=== PATIENT | male | born 1980 | race Caucasian/White ===

== ENCOUNTER 2017-09-06 09:18 | Emergency (ER) | payer SELFPAY ==
[2017-09-06] MEDS ORDERED: Metoclopramide 10 MG/2 ML SDV IVPUSH ONE (10:29)
[2017-09-06] MEDS ORDERED: LORazepam 2 MG/ML MDV IVPUSH ONE (10:29)
--- NOTE | 2017-09-06 10:29 | EDM.PDOCBH ---
ED HPI GENERAL MEDICAL PROBLEM - General Chief Complaint: Drug or Alcohol Abuse Stated Complaint: ALCOHOL DETOX Time Seen by Provider: 09/06/17 10:23 Source of Information: Reports: Patient History Limitations: Reports: No Limitations - History of Present Illness INITIAL COMMENTS - FREE TEXT/NARRATIVE: 37-year-old male presents to the ED with a request to help stop drinking alcohol. He's enjoyed 2 years of sobriety but fell off the wagon about 3 weeks ago and is been drinking large quantities of vodka anywhere between 3 and 4 pints per day. Last drink was last evening about 8:00. At present he is feeling very agitated and anxious. No nausea or vomiting. No he met emesis. Stools tend to be on the loose side. Other use of street drugs. Smokes 5 cigarettes per day. Plan is to get back into treatment program in [place] where he went to years ago with good success. He has generalized chronic anxiety disorder. States this is why he drinks alcohol. Has a lot of guilt about drinking alcohol but denies any suicidal ideation or attempts in the past. Onset: Today (Withdrawal symptoms started overnight. Hardly slept at all.) Onset Date: 09/05/17 Duration: Hour(s): Location: Reports: Generalized (Generalized anxiety feeling very antsy and no) Quality: Reports: Other Severity: Severe (Anxiety) Improves with: Reports: None Worsens with: Reports: None Context: Reports: Other (Alcoholism.). Denies: Activity, Exercise, Sick Contact , Trauma Associated Symptoms: Reports: Malaise, Nausea/Vomiting (Nausea with no vomiting) . Denies: Confusion, Chest Pain, Cough, cough w sputum, Diaphoresis, Fever/ Chills, Headaches, Loss of Appetite, Rash, Seizure, Shortness of Breath, Syncope Treatments [employer] FOR[employer] ANALYST: Reports: Other (see below) (None.) - Related Data Allergies Allergy/AdvReac Type Severity Reaction Status Date / Time No Known Allergies Allergy Verified 09/06/17 09:28 Home Meds: Home Meds LORazepam [Ativan] 1 mg PO ASDIRECTED #24 tablet 09/06/17 [Rx] buPROPion [Wellbutrin XL] 150 mg PO DAILY 09/06/17 [History] Past Medical History Psychiatric History: Reports: Addiction, Anxiety Social & Family History - Tobacco Use Smoking Status *Q: Current Every Day Smoker Tobacco Use Within Last Twelve Months: Cigarettes (About 5 cigarettes a day.) Years of Tobacco use: 2 Packs/Tins Daily: 0.5 - Alcohol Use Days Per Week of Alcohol Use: 7 Number of Drinks Per Day: 10 (Drinks on average of 3-4 pints of vodka per day.) Total Drinks Per Week: 70 - Recreational Drug Use Recreational Drug Use: No - Living Situation & Occupation Occupation: Employed ED ROS GENERAL - Review of Systems Review Of Systems: See Below Constitutional: Reports: Malaise, Weight Loss. Denies: Fever, Chills, Weakness , Fatigue HEENT: Reports: No Symptoms Respiratory: Reports: No Symptoms Cardiovascular: Reports: No Symptoms Endocrine: Reports: Fatigue GI/Abdominal: Reports: Nausea (Slight nausea at times. Has not eaten yet today.) . Denies: Abdominal Pain : Reports: Frequency Musculoskeletal: Reports: No Symptoms Skin: Reports: No Symptoms Neurological: Reports: No Symptoms Psychiatric: Reports: Agitation, Anxiety. Denies: Confusion, Cravings, Depression, Hallucinations, Homicidal Ideation, Mood Lability, Suicidal Ideation Hematologic/Lymphatic: Reports: No Symptoms Immunologic: Reports: No Symptoms ED EXAM, BEHAVIORAL HEALTH - Physical Exam Exam: See Below Exam Limited By: No Limitations General Appearance: Alert, WD/WN, Moderate Distress (Appears very anxious and has difficulty sitting or standing in one place for too long.) Eye Exam: Bilateral Eye: Normal Inspection, Nystagmus (Mild I statements on left lateral gaze bilaterally.) Throat/Mouth: Normal Inspection, Normal Lips, Normal Oropharynx, Other (Tongue is mildly dry and coated.) Head: Atraumatic, Normocephalic Neck: Normal Inspection, Supple, Non-Tender, Full Range of Motion. No: Lymphadenopathy (L), Lymphadenopathy (R) Respiratory/Chest: No Respiratory Distress, Lungs Clear, Normal Breath Sounds, No Accessory Muscle Use Cardiovascular: Normal Peripheral Pulses, No Edema (Mildly tachycardic 1 14/m at rest.), No Gallop, No Murmur, No Rub, Tachycardia GI/Abdominal: Normal Bowel Sounds, Soft, Non-Tender, No Organomegaly, No Distention, No Abnormal Bruit, No Mass, Pelvis Stable Back Exam: Normal Inspection, Full Range of Motion. No: CVA Tenderness (L), CVA Tenderness (R) Extremities: Normal Inspection, Normal Range of Motion, Non-Tender, No Pedal Edema, Normal Capillary Refill Neurological: Alert, Normal Mood/Affect, CN II-XII Intact, Normal Cognition, Normal Reflexes, Oriented x 3 Psychiatric: Alert, Normal Affect, Normal Cognition, Normal Mood, Oriented, Restless. No: Poor Eye Contact, Uncooperative, Homicidal Thoughts, Moravian Delusions, Suicidal Plan, Suicidal Thoughts, Tangential Thoughts, Auditory Hallucinations, Visual Hallucinations Skin Exam: Warm, Dry, Intact, Normal color, No rash COURSE, BEHAVIORAL HEALTH COMP - Course Vital Signs: Last Vital Signs Temp 35.7 C 09/06/17 09:24 Pulse 113 H 09/06/17 09:24 Resp 16 09/06/17 09:24 BP 163/102 H 09/06/17 09:24 Pulse Ox 97 09/06/17 09:24 Orders, Labs, Meds: Laboratory Tests 09/06/17 09/06/17 09/06/17 Range/Units 10:35 10:35 10:35 WBC 5.88 (4.23-9.07) K/mm3 RBC 4.68 (4.63-6.08) M/mm3 Hgb 15.6 (13.7-17.5) gm/L Hct 43.4 (40.1-51.0) % MCV 92.7 H (79.0-92.2) fl MCH 33.3 H (25.7-32.2) pg MCHC 35.9 H (32.2-35.5) g/dl RDW Std Deviation 48.0 H (35.1-43.9) fL Plt Count 200 (163-337) K/mm3 MPV 9.1 L (9.4-12.3) fl Neutrophils % (Manual) 76 H (40-60) % Band Neutrophils % 0 (0-10) % Lymphocytes % (Manual) 20 (20-40) % Atypical Lymphs % 0 % Monocytes % (Manual) 4 (2-10) % Eosinophils % (Manual) 0 L (0.8-7.0) % Basophils % (Manual) 0 L (0.2-1.2) Platelet Estimate Adequate RBC Morph Comment Normal PT 9.9 (8.0-13.0) SECONDS INR 0.91 APTT 26 (22-36) SECONDS Sodium 138 (136-145) mEq/L Potassium 3.5 (3.5-5.1) mEq/L Chloride 97 L (98-107) mEq/L Carbon Dioxide 27 (21-32) mEq/L Anion Gap 17.5 H (5-15) BUN 10 (7-18) mg/dL Creatinine 0.8 (0.7-1.3) mg/dL Est Cr Clr Drug Dosing 128.00 mL/min Estimated GFR (MDRD) > 60 (>60) mL/min BUN/Creatinine Ratio 12.5 L (14-18) Glucose 119 H (74-106) mg/dL Calcium 8.1 L (8.5-10.1) mg/dL Magnesium 1.8 (1.8-2.4) mg/dl Total Bilirubin 0.6 (0.2-1.0) mg/dL AST 77 H (15-37) U/L ALT 68 H (16-63) U/L Alkaline Phosphatase 63 (46-116) U/L C-Reactive Protein < 0.2 (<1.0) mg/dL Total Protein 7.2 (6.4-8.2) g/dl Albumin 3.9 (3.4-5.0) g/dl Globulin 3.3 gm/dL Albumin/Globulin Ratio 1.2 (1-2) Lipase 91 (73-393) U/L Ethyl Alcohol 0.19 (0.00) gm% Medications Discontinued Medications Generic Name Dose Route Start Last Admin Trade Name Freq PRN Reason Stop Dose Admin Dextrose/Sodium Chloride 1,000 mls @ 999 mls/hr 09/06/17 10:30 09/06/17 10:47 Dextrose 5%-Normal Saline IV 999 mls/hr ASDIRECTED MULUGETA Administration Lorazepam 1 mg 09/06/17 10:29 09/06/17 10:47 Ativan IVPUSH 09/06/17 10:30 1 mg ONETIME ONE Administration Metoclopramide HCl 10 mg 09/06/17 10:29 09/06/17 10:47 Reglan IVPUSH 09/06/17 10:30 10 mg ONETIME ONE Administration Re-Assessment/Re-Exam: 37-year-old male presents the ED requesting help to stop drinking alcohol. Patient states that he was injured 2 years of sobriety but fell off the wagon 3- 4 weeks ago. Since that has been drinking 3-4 pints of vodka per day. He's gone through withdrawal in the past without any ever seizure disorder. He has underlying generalized anxiety disorder for which he usually takes clonazepam. He is not on this medication at present. He presents feeling very agitated and anxious. States he's hardly slept at all. Last drink was reportedly at 8:00 last night. Denies any use of street drugs or ever using intravenous drugs. Smokes 5 cigarettes per day. Mildly nauseated at this time. Has not had anything to eat or drink this morning. Denies any excessive vomiting in the mornings or hematemesis. Plan routine labs including magnesium and ethanol levels. IV will be D5 normal saline at open. Will give Reglan 10 mg IV with Ativan 1 mg IV at this time. Re-Assessment/Re-Exam Date: 09/06/17 (Labs are back. Total white count is 5.88 with a essentially normal differential. There is mild S left shift of 76% neutrophils but no band cells. Hemoglobin is 15.6 with hematocrit of 43.4 normal. Platelets 200,000 normal. PT is 9.9 INR 0.91 PTT is 26. Sodium 138 potassium slow low-normal at 3.5 chloride 97 bicarbonate 27 and a gap is mildly elevated at 17.5. BUNs 10 and creatinine is 0.8. EGFR is greater than 60. Glucose is 119. Magnesium is 1.8 low normal. AST is 77 ALT is 68 both slightly elevated. Lipase is normal at 91. Current blood alcohol 0.19 g percent. Patient will be discharged home on Ativan 1 mg every 4 hours today and tomorrow then 1 mg every 6 hours for one day then 1 tablet every 8 hours for 2 more days and off.) Departure - Departure Time of Disposition: 11:35 Disposition: Home, Self-Care 01 Condition: Fair Clinical Impression: Alcohol withdrawal syndrome Qualifiers: Complication of substance-induced condition: uncomplicated Qualified Code(s): F10.230 - Alcohol dependence with withdrawal, uncomplicated - Discharge Information Prescriptions: LORazepam [Ativan] 1 mg PO ASDIRECTED #24 tablet Instructions: Alcohol Use Disorder Referrals: PCP,None [Primary Care Provider] - Additional Instructions: Evaluation the emergency room today in regards to request to help withdrawal from alcohol. Heavy vodka intake over the last several weeks have been major brain and body dependent on alcohol. The withdrawal symptoms that occur are secondary to the body missing alcohol is a depressant primarily in the brain. Lab tests were all essentially normal other than a blood alcohol of 0.19 g percent meaning that it is still far too high to be able to operate a motor vehicle. Legal limit to operate a motor vehicle is 0.08 g percent. Treatment is therefore Ativan 1 mg every 4 hours for the next 2 days then 1 tablet every 6 hours for one day then 1 tablet every 8 hours for 2 days then 1 tablet every 12 hours for 1 day and off. This could she through the acute withdrawal phase from alcohol and prevent seizures and DTs. As you discussed her looking at getting into a treatment program if you need help with this please call [facility] tomorrow morning as they have alcohol and drug counselor set may be helpful to you. They will see you if you are sober. Phone number is [phone].
[2017-09-06] MEDS ORDERED: Dextrose 5%-0.9% NaCl 1,000 ML IV SCH (10:30)
== END 2017-09-06 11:55 | disposition home or self-care (01) ==
LOC: JD.ED 09:18
DX: F10.230 Alcohol dependence with withdrawal, uncomplicated (principal); F17.210 Nicotine dependence, cigarettes, uncomplicated; Z79.899 Other long term (current) drug therapy
CPT/HCPCS: 36415; 80053; 83690; 83735; 85025; 85610; 85730; 86140; 96361; 96374; 96375; 99285; G0480; J2060; J2765; J7042; 99284